=== PATIENT | female | born 1960 | race Caucasian/White ===

== ENCOUNTER 2017-07-01 05:16 | Day surgery (SDC) | payer OTHER ==
[~2017-07-01] VITALS: Ht 165.1 cm; Wt 62.6 kg
--- NOTE | ~2017-07-01 | O ---
[facility] [place] [address] OPERATIVE REPORT Name: PAT ARSHAD Room #: DEP [facility]#: [id number] Admission: 07/01/17 Attend Phys: Brian Carl MD Discharge: 07/01/17 Date of : 58 Report #: [id number] THIS REPORT FOR: //name// CC: Brian Carl Physician staff DATE OF SERVICE: 07/01/2017 SERVICE: Orthopedics. FACILITY: [facility] SURGEON: Brian Carl MD ASSISTANTS: None. PREOPERATIVE DIAGNOSES: 1. Right hip pain. 2. Right hip impingement. 3. Right hip labral tear. POSTOPERATIVE DIAGNOSES: 1. Right hip pain. 2. Right hip impingement. 3. Right hip labral tear. 4. Mild right hip chondromalacia. PROCEDURE: 1. Right hip arthroscopic labral repair. 2. Right hip arthroscopic subspine acetabuloplasty. 3. Right hip arthroscopic Cam osteochondroplasty. ESTIMATED BLOOD LOSS: 5 mL. ANESTHESIA TYPE: General with regional. FINDINGS: 1. Fully detached labral tear. 2. Labral repair with Roman knotless suture anchor x 5. 3. Moderate size Cam deformity treated with Cam resection. 4. Capsular repair with #2 Vicryl x 2. HISTORY AND INDICATIONS: The patient is a 56-year-old female with history of several injuries to her right hip, most recent is a couple years ago when she slipped on the ice while getting her grandchildren in the car and has had persistent pain despite extensive nonsurgical treatment including rest, activity [facility] [address] [place] [address] OPERATIVE REPORT Name: PAT ARSHAD Room #: DEP [facility].#: [id number] Admission: 07/01/17 Attend Phys: Brian Carl MD Discharge: 07/01/17 Date of : 58 Report #: [id number] modification, physical therapy, oral medicines and injection discussions. Despite this conservative treatment, she continued to have lifestyle limiting pain and wished to have definitive treatment. Preoperative imaging demonstrated an alpha angle of 58 degrees with a small crossover sign that was suggestive of pincer-sided impingement lesion as well, which was from the anterior inferior iliac spine. It was confirmed arthroscopically. She had maintained joint space without any collapse and had Tonnis grade of 0 and the MRI showed a significant labral tear. Risks, benefits, alternatives, and indications for surgery were discussed with her in detail. Risks include but not limited to pain, bleeding, infection, injury to nerves or blood vessels, persistent pain despite surgical intervention, failure of any repairs, reconstructions, progression of any preexisting chondral injury, stiffness, need for further surgery as well as complications related to anesthesia such as stroke, heart attack, pulmonary complications, thromboembolic disease and . Despite these risks, she wished to proceed. PROCEDURE IN DETAIL: After right lower extremity was correctly identified in preoperative holding area as the operative extremity, the patient underwent placement of a single shot regional nerve block. She was then taken to operating room and placed supine on operating table and general anesthesia was induced without complication. She was padded appropriately. Prophylactic antibiotics were administered at appropriate time. Bilateral lower extremities were placed in traction boots and mapped out the femoral head and neck junction to assess the Cam deformity. Alpha angle was confirmed to be approximately 58 degrees and the Cam extended from the 10 degree position to approximately the 60-degree position on the femoral head and neck junction. Right leg was then prepped and draped in standard sterile fashion. Time-out procedure was performed. Traction was applied to right lower extremity. Total traction time was 60 minutes. A distal anterolateral portal was established under traction under fluoroscopic guidance and scope was placed into hip. The labrum was immediately noted to be fully detached from the 2 o'[address] position all the way to the 10 o'clock position on a standardized right hip and it was dropping into the joint and lying on top of the femoral head. A spinal needle was used to bring a nitinol wire at the interface of the labrum resting on the femoral head in an atraumatic fashion under direct arthroscopic visualization to avoid any chondral injury and then to allow dilation up to a point where the cannula could be placed between the labrum and the femoral head. Transverse capsulotomy was then performed and then the shaver was used to address the synovitis and redundant capsule on the dorsal side where the labrum was detached. This allowed exposure of a small [address] [address] OPERATIVE REPORT Name: PAT ARSHAD Room #: [place] [facility]#: [id number] Admission: 07/01/17 Attend Phys: Brian Carl MD Discharge: 07/01/17 Date of : 58 Report #: [id number] subspine acetabular-sided impingement lesion and so the bur was used to resect this pathology back to appropriate level and then the bur was used to perform abrasion of the acetabular rim for labral refixation. After this was completed, the first anchor was placed with a cerclage suture and this was primarily used as a reduction suture at the apex of the detachment and then the additional 4 sutures were placed around this so as to provide stable secure fixation. The labral detachment was optimally treated with 4 cerclage stitches and I used 1 as the mattress to pull up an associated chondral bleb where the chondral labral junction was intact in one portion of it. There was full chondral labral disruption at the apex of the detachment and so the shaver was used to perform a limited chondroplasty at the chondral labral junction after the labral repair was completed. Traction was then let down and suction seal was noted to be restored. Attention was then turned towards the Cam. I started the Cam resection due to its rather lateral position in extension and then flexed the hip and completed the Cam resection, removed the instruments from the hip, brought in C-arm to identify 1 additional area that would benefit for further resection and then placed the scope back into the hip, extended the capsulotomy in a T type fashion and then completed the Cam osteoplasty at this point in time. The final x-rays were then taken and then the capsule was repaired with #2 Vicryl x 2 and then the portal sites were closed with a deep followed by superficial Monocryl stitch. Sterile dressing was applied. The patient was awakened from anesthesia and taken to recovery room in stable condition. There were no complications and all counts were recorded as correct. <ELECTRONICALLY SIGNED> By: Brian Carl MD 07/01/17 [id number] Brian Carl MD /nt
[~2017-07-01 05:16] MED LIST: BIO-IDENTICAL HORMON TOP; CARDIO OMEGA B1 EACH PO; FLAX OIL1000 MG PO; LIPITOR 20 MG T20 M1 PO; MELATONIN1 MG PO; METFORMIN HCL500 MG PO; NORTRIPTYLINE H10 M1 PO; TOPAMAX 25 MG T25 M1 PO; TURMERIC500 M2 PO; [UNRECOGNIZED DRUG - OTHER] PO
[2017-07-01 07:03] VITALS: BP 122/70
[2017-07-01 11:16] VITALS: BP 122/70
== END 2017-07-01 12:50 | disposition home or self-care (01) ==
LOC: TBA 05:16 → OR 05:16 → TBA 05:17 → OR 08:41
DX: M25.851 Other specified joint disorders, right hip (principal); S73.191A Other sprain of right hip, initial encounter; E11.9 Type 2 diabetes mellitus without complications; M94.251 Chondromalacia, right hip; G43.909 Migraine, unspecified, not intractable, without status migrainosus; G47.33 Obstructive sleep apnea (adult) (pediatric); Z90.710 Acquired absence of both cervix and uterus; Z85.43 Personal history of malignant neoplasm of ovary; Z98.890 Other specified postprocedural states; Z88.1 Allergy status to other antibiotic agents; Z88.6 Allergy status to analgesic agent; Z91.041 Radiographic dye allergy status; Z79.899 Other long term (current) drug therapy; X58.XXXA Exposure to other specified factors, initial encounter; Y93.89 Activity, other specified; Y92.89 Other specified places as the place of occurrence of the external cause; Y99.8 Other external cause status
CPT/HCPCS: 50010; 56524